=== PATIENT | female | born 1990 ===

== ENCOUNTER 2018-08-10 08:38 | Inpatient (IN) | payer OTHER ==
[~2018-08-10] VITALS: Ht 149.9 cm; Wt 77.3 kg
[2018-08-10 19:17] VITALS: BP 109/61; PULSE 86; TEMP 98.5
[2018-08-10] MEDS ORDERED: VIREAD PO (19:24)
[2018-08-10] MEDS ORDERED: PRENATAL MVI (19:26)
[2018-08-10 20:00] VITALS: BP 117/70; PULSE 77; TEMP 98.5
[2018-08-10 20:41] LABS: BASO % 0.2 % (0.0-2.0); EOS # 0.1 (0.0-0.7); EOS % 1.6 % (0-4.0); GRAN # 6.1 (1.4-6.5); GRAN % 67.8 % (42.2-75.2); HEMOGLOBIN 11.7 g/dl (12.5-16.0); LYMPH # 2.1 (1.2-3.4); LYMPH % 23.2 % (20.0-51.0); MEAN CELL VOLUME 84 fl (80.0-100.0); MEAN CORPUSCULAR HEMOGLOBIN 29 pg (27.0-31.0); MEAN CORPUSCULAR HGB CONC 34 g/dl (33.0-37.0); MEAN PLATELET VOLUME 10.2 fl (7.4-10.4); MONO # 0.6 (0.1-0.6); MONO % 6.9 % (1.7-9.3); PLATELET COUNT 190 K/mm3 (130-400); RED BLOOD COUNT 4.05 M/mm3 (4.10-5.30)
[2018-08-10 20:43] LABS: HEMATOCRIT 34.2 % (37.0-47.0)
[2018-08-10 21:00] VITALS: BP 105/58; PULSE 70
[2018-08-10 21:30] VITALS: BP 100/59; PULSE 85
[2018-08-10 22:00] VITALS: BP 104/58; PULSE 83; TEMP 98.2
[2018-08-10 22:30] VITALS: BP 102/57; PULSE 76
[2018-08-11] VITALS (65 sets, daily range): BP systolic 90–125; BP diastolic 49–95; PULSE 58–100; TEMP 98–99.9
[2018-08-12] VITALS: BP 105/51; PULSE 79; TEMP 98.9
[2018-08-12 04:00] VITALS: BP 98/72; PULSE 74; TEMP 98
[2018-08-12 06:49] LABS: BASO % 0.2 % (0.0-2.0); EOS # 0.1 (0.0-0.7); EOS % 0.4 % (0-4.0); GRAN % 79.4 % (42.2-75.2); HEMATOCRIT 30.5 % (37.0-47.0); HEMOGLOBIN 10.3 g/dl (12.5-16.0); LYMPH # 1.9 (1.2-3.4); LYMPH % 15.3 % (20.0-51.0); MEAN CELL VOLUME 85 fl (80.0-100.0); MEAN CORPUSCULAR HEMOGLOBIN 29 pg (27.0-31.0); MEAN CORPUSCULAR HGB CONC 34 g/dl (33.0-37.0); MEAN PLATELET VOLUME 10.2 fl (7.4-10.4); MONO # 0.6 (0.1-0.6); MONO % 4.5 % (1.7-9.3); PLATELET COUNT 183 K/mm3 (130-400); RED BLOOD COUNT 3.59 M/mm3 (4.10-5.30); REDCELL DISTRIBUTION WIDTH-CV 13.1 % (11.5-14.5)
[2018-08-12 07:00] LABS: ALBUMIN 2.3 gm/dL (3.5-5.0); BILIRUBIN,TOTAL 0.3 mg/dL (0.0-1.0); CALCIUM 8.4 mg/dL (8.4-10.2); CREATININE, serum 0.55 mg/dL (0.52-1.25); TOTAL PROTEIN 4.9 gm/dL (6.4-8.2)
[2018-08-12 07:25] VITALS: BP 103/56; PULSE 69; TEMP 98.4
[2018-08-12 12:30] VITALS: BP 96/62; PULSE 97; TEMP 99
[2018-08-12] MEDS ORDERED: PERCOCET 325 MG1 TA2 PO (13:33)
[2018-08-12 15:50] VITALS: BP 95/53; PULSE 77; TEMP 98.2
[2018-08-12 20:15] VITALS: BP 96/56; PULSE 89; TEMP 98.8
[2018-08-13 07:15] VITALS: BP 97/45; PULSE 84; TEMP 97.9
[2018-08-13 11:27] VITALS: BP 108/64; PULSE 103
== END 2018-08-13 11:40 | disposition home or self-care (01) | DRG 787 ==
LOC: LDR 08:38 → OB 19:09 → LDR 19:09 → OB 08-11 21:30
PROVIDERS: Student in an Organized Health Care Education/Training Program
PROC: 3E0P7VZ Introduction of Hormone into Female Reproductive, Via Natural or Artificial Opening (ICD-10-PCS; 2018-08-10)
PROC: 10D00Z1 Extraction of Products of Conception, Low, Open Approach (ICD-10-PCS; principal; 2018-08-11)
PROC: 3E033VJ Introduction of Other Hormone into Peripheral Vein, Percutaneous Approach (ICD-10-PCS; 2018-08-11)
PROC: 10907ZC Drainage of Amniotic Fluid, Therapeutic from Products of Conception, Via Natural or Artificial Opening (ICD-10-PCS; 2018-08-11)
DX: O36.5930 Maternal care for other known or suspected poor fetal growth, third trimester, not applicable or unspecified (principal); B19.10 Unspecified viral hepatitis B without hepatic coma; O98.42 Viral hepatitis complicating childbirth; O75.2 Pyrexia during labor, not elsewhere classified; Z3A.38 38 weeks gestation of pregnancy; Z37.0 Single live birth; O61.0 Failed medical induction of labor; E28.2 Polycystic ovarian syndrome; O76 Abnormality in fetal heart rate and rhythm complicating labor and delivery; O62.1 Secondary uterine inertia
CPT/HCPCS: J0690; J1885; J2175; J2370; J2590; J7120

== ENCOUNTER → 2019-10-20 | Outpatient (CLI) | payer OTHER ==
[~2019-10-20] MED LIST: PERCOCET 325 MG1 TA2 PO; PRENATAL MVI; VIREAD PO
== END ==
LOC: COL.RAD 08:50
DX: B16.9 Acute hepatitis B without delta-agent and without hepatic coma (principal)

== ENCOUNTER 2021-04-24 08:24 | Inpatient (IN) | payer BC ==
[~2021-04-24] VITALS: Ht 149.9 cm; Wt 68.2 kg
[2021-04-24] VITALS (16 sets, daily range): BP systolic 91–105; BP diastolic 50–72; PULSE 56–78; TEMP 97.8–98.5
--- NOTE | 2021-04-24 10:05 | NUR ---
1005- 39.0, G2L1 arrives on unit for scheduled repeat section. Ambulatory to 213. Changes into clean gown. 1015- This RN to bedside. [employer] "Lnaa" code [id number] used to translate. Patient reports normal movement, denies any LOF, VB, or contractions. VS obtained. 1020- IV to left FA. Routine labs obtained. IVF infusing. 1030- Consent forms explained and signed. Assessment completed. Plan of care reviewed. Questions invited and answered. Resting with call light within reach.
[2021-04-24 10:39] LABS: BASO # 0.1 (0.0-0.2); BASO % 0.7 % (0.0-2.0); EOS # 0.2 (0.0-0.7); EOS % 2.6 % (0-4.0); GRAN # 5.8 (1.4-6.5); GRAN % 68.1 % (42.2-75.2); HEMOGLOBIN 12.4 g/dl (12.5-16.0); LYMPH # 1.9 (1.2-3.4); LYMPH % 21.7 % (20.0-51.0); MEAN CELL VOLUME 86 fl (80.0-100.0); MEAN CORPUSCULAR HEMOGLOBIN 29 pg (27.0-31.0); MEAN CORPUSCULAR HGB CONC 34 g/dl (33.0-37.0); MEAN PLATELET VOLUME 10.1 fl (7.4-10.4); MONO # 0.6 (0.1-0.6); MONO % 6.4 % (1.7-9.3); PLATELET COUNT 175 K/mm3 (130-400); RED BLOOD COUNT 4.23 M/mm3 (4.10-5.30); REDCELL DISTRIBUTION WIDTH-CV 12.8 % (11.5-14.5)
[2021-04-24 10:40] LABS: HEMATOCRIT 36.5 % (37.0-47.0)
[2021-04-24] MEDS ORDERED: IBU800 M1 PO (12:57)
[2021-04-24] MEDS ORDERED: PERCOCET 325 MG1 TA2 PO (12:58)
[2021-04-25] VITALS: BP 99/61; PULSE 63; TEMP 97.8
[2021-04-25 03:30] VITALS: BP 92/48; PULSE 69; TEMP 98.1
[2021-04-25 07:15] VITALS: BP 98/51; PULSE 71; TEMP 97.9
[2021-04-25 16:00] VITALS: BP 92/53; PULSE 71; TEMP 98.3
[2021-04-25 21:00] VITALS: BP 96/54; PULSE 70; TEMP 98
[2021-04-26 09:10] VITALS: BP 93/59; PULSE 66; TEMP 98
== END 2021-04-26 15:30 | disposition home or self-care (01) | DRG 787 ==
LOC: OB 08:24
PROVIDERS: ADMIT Student in an Organized Health Care Education/Training Program
PROC: 10D00Z1 Extraction of Products of Conception, Low, Open Approach (ICD-10-PCS; principal; 2021-04-24)
DX: O34.211 Maternal care for low transverse scar from previous cesarean delivery (principal); O98.413 Viral hepatitis complicating pregnancy, third trimester; B19.10 Unspecified viral hepatitis B without hepatic coma; O99.824 Streptococcus B carrier state complicating childbirth; O99.283 Endocrine, nutritional and metabolic diseases complicating pregnancy, third trimester; E28.2 Polycystic ovarian syndrome; Z3A.39 39 weeks gestation of pregnancy; Z37.0 Single live birth
CPT/HCPCS: J0690; J1885; J2370; J2405; J2590; J7120